=== PATIENT | male | born 2000 | race Caucasian/White ===

== ENCOUNTER 2020-09-22 17:17 | Emergency (ER) | payer MEDICAID ==
[~2020-09-22] VITALS: Ht 177.8 cm; Wt 70.3 kg
[2020-09-22 17:24] VITALS: Ht 177.8 cm; Wt 70.3 kg
[2020-09-22] MEDS ORDERED: IBU600 M2 PO (18:09)
[2020-09-22] MEDS ORDERED: ACETAMINOPHEN500 M5 PO (18:09)
[2020-09-22 18:43] VITALS: BP 118/64
== END 2020-09-22 18:43 | disposition home or self-care (01) ==
LOC: ED 17:17
DX: S62.306A Unspecified fracture of fifth metacarpal bone, right hand, initial encounter for closed fracture (principal); S62.304A Unspecified fracture of fourth metacarpal bone, right hand, initial encounter for closed fracture; X58.XXXA Exposure to other specified factors, initial encounter; Y93.89 Activity, other specified; Y92.89 Other specified places as the place of occurrence of the external cause; Y99.8 Other external cause status